=== PATIENT | female | born 1955 | race Caucasian/White ===

== ENCOUNTER 2017-02-18 16:39 | Emergency (ER) | payer OTHER ==
[~2017-02-18] VITALS: Ht 403.9 cm; Wt 105.6 kg
[~2017-02-18 16:39] MED LIST: ALBUTEROL SULF8.5 GM IH; ALBUTEROL17 GM IH; ALEVE220 M2 PO; ALEVE220 MG PO; ANAPROX DS550 M1 PO; ASPIRIN81 M2 PO; ATIVAN1 MG PO; ATIVAN2 MG PO; AZITHROMYCIN250 MG1 PO; Ativan PO; CALCIUM500 M3 NG; CALCIUM500 M4; CEFUROXIME250 MG PO; CEFUROXIME500 MG PO; CENTRUM SILVER1 EAC3 PO; CLARITIN10 M3 PO; COMBIVENT RESPIM4 GM IH; COMBIVENT200 INHALA IH; CULTURELLE CAP1 EACH PO; Claritin,Alavart PO; EXCEDRIN MIGRA1 EAC3 PO; Ecotrin PO; FLOVENT 11120 INHALA IH; FLOVENT 22120 INHALA IH; GLUCOPHAGE XR,500 MG PO; HYCODAN SYRUP480 ML PO; LEVOCETIRIZINE D5 MG PO; LEVOTHYROXINE125 MCG PO; LEVOTHYROXINE75 MCG PO; LOPRESSOR50 MG PO; LORAZEPAM2 MG PO; Levothroid,Synthroid PO; METOPROLOL SUCC50 MG PO; MIRALAX17 GM PO; MOTRIN600 MG PO; Motrin PO; NAPROXEN500 MG PO; NORCO 5/3251 TABLET PO; OMEPRAZOLE40 M1 PO; OXYCODONE5 MG PO; PERCOCET 10/1 TABLET PO; PERCOCET 5/31 TABLET PO; PREDNISONE10 MG PO; PREDNISONE20 MG PO; PREDNISONE50 MG PO; PRILOSEC PO; PRILOSEC40 MG PO; PULMICORT FLE180 MCG IH; Proventil,Ventolin H IH; REGLAN10 M1 PO; REGLAN10 MG PO; ROBITUSSIN DM118 ML PO; SINGULAIR10 MG PO; SYNTHROID100 MCG PO; TEGRETOL100 MG PO; TESSALON PERLE100 M1 PO; TESSALON PERLE100 MG PO; THEO-24200 MG PO; THEO-DUR,THEOC200 MG PO; TYLENOL REGULA325 MG PO; Tylenol Regular Stre PO; VAGIFEM10 MCG VG; VALTREX50 MG/ML PO; VENTOLIN17 GM IH; VERAPAMIL HCL120 M1 PO; VERAPAMIL HCL120 M3 PO; VERAPAMIL HCL120 MG PO; VERAPAMIL SR180 MG PO; VITAMIN C500 MG PO; VITAMIN D1000 INTUN PO
[2017-02-18 20:30] VITALS: BP 120/57
== END 2017-02-18 20:31 | disposition home or self-care (01) ==
LOC: EME 16:39
DX: A74.9 Chlamydial infection, unspecified (principal)
CPT/HCPCS: 99281; 99284; J2920; J7030

== ENCOUNTER 2017-05-15 23:03 | Observation (INO) | payer OTHER ==
[~2017-05-15] VITALS: Ht 175.3 cm; Wt 100.0 kg
[2017-05-15 23:35] LABS: HEMATOCRIT 41.1 % (36.0-46.0); MCH 30.7 PG (29.0-34.0); MCHC 32.8 G/DL (30.0-36.0); MCV 93.4 FL (83-99); MEAN PLAT.VOLUME 10.9 uM^3 (9.5-12.4); PLATELET COUNT 212 K/uL (156-360); RBC DIS.WIDTH-CV 13.3 % (11.8-14.6); RBC DIS.WIDTH-SD 45.7 % (39-53); WHITE BLOOD COUNT 10.2 K/uL (4.1-10.2)
[2017-05-15 23:43] LABS: CHLORIDE 107 mEq/L (99-109); POTASSIUM 3.9 mEq/L (3.7-5.4); SODIUM 137 mEq/L (136-147)
[2017-05-15 23:44] LABS: GLUCOSE 219 mg/dL (70-99)
[2017-05-15 23:46] LABS: ANION GAP 11 MEQ/L (2-14)
[2017-05-15 23:48] LABS: GFR ESTIMATE (CALCULATED) > 59 mL/min/
[2017-05-15 23:49] LABS: UREA NITROGEN (BUN) 15 mg/dL (9-23)
[2017-05-15 23:54] LABS: TROP-I INTERPRETATION NEGATIVE; TROPONIN-I < 0.01 ng/mL (0.0-0.30)
[2017-05-16 01:22] LABS: D-DIMER ELISA 0.55 mg/L FEU (< 0.57); TOTAL BILIRUBIN 0.5 mg/dL (0.0-1.0)
[2017-05-16 01:23] LABS: ALKALINE PHOSPHATASE 133 IU/L (3-129)
[2017-05-16 01:26] LABS: DIRECT BILIRUBIN 0.2 mg/dL (0.0-0.3)
[2017-05-16 01:27] LABS: LIPASE 71 U/L (1.0-51.0)
[2017-05-16 06:16] VITALS: BP 129/57
[2017-05-16 07:20] VITALS: BP 114/58
[2017-05-16 07:24] LABS: TROP-I INTERPRETATION NEGATIVE; TROPONIN-I < 0.01 ng/mL (0.0-0.30)
[2017-05-16] MEDS ORDERED: LOSARTAN POTASS50 MG PO (09:24)
[2017-05-16] MEDS ORDERED: BENTYL10 MG PO (09:24)
[2017-05-16] MEDS ORDERED: ASPIRIN81 M2 PO (10:00)
[2017-05-16 11:41] VITALS: BP 115/60
[2017-05-16 13:27] LABS: TROP-I INTERPRETATION NEGATIVE; TROPONIN-I 0.01 ng/mL (0.0-0.30)
[2017-05-18 18:55] LABS: Varicella IgM <=0.90 (<=0.90)
== END 2017-05-16 15:17 | disposition home or self-care (01) ==
LOC: EME 23:03 → EXP 23:03 → EDOF 05-16 03:59 → 5WEST 05-16 05:45
PROVIDERS: Hospitalist
DX: R07.9 Chest pain, unspecified (principal); I10 Essential (primary) hypertension; E11.65 Type 2 diabetes mellitus with hyperglycemia; R06.02 Shortness of breath; R11.0 Nausea; R51 Headache; Z98.890 Other specified postprocedural states; K21.9 Gastro-esophageal reflux disease without esophagitis; J44.9 Chronic obstructive pulmonary disease, unspecified; Z79.52 Long term (current) use of systemic steroids; Z88.8 Allergy status to other drugs, medicaments and biological substances
CPT/HCPCS: 71020; 80048; 80076; 83690; 84484; 85027; 85379; 86787 90; 93005; 93306; 93971; 99281; 99285; G0378; J1650; J1885; J2405; J3010; J7040

== ENCOUNTER 2017-06-01 15:11 | Observation (INO) | payer OTHER ==
[~2017-06-01] VITALS: Ht 175.3 cm; Wt 105.5 kg
[~2017-06-01 15:11] MED LIST changes: +BENTYL10 MG PO; +LOSARTAN POTASS50 MG PO
[2017-06-01 16:12] LABS: HEMATOCRIT 42.8 % (36.0-46.0); MCH 30.9 PG (29.0-34.0); MCHC 33.2 G/DL (30.0-36.0); MEAN PLAT.VOLUME 11.2 uM^3 (9.5-12.4); PLATELET COUNT 254 K/uL (156-360); RBC DIS.WIDTH-CV 13.2 % (11.8-14.6); RBC DIS.WIDTH-SD 45.1 % (39-53); WHITE BLOOD COUNT 9.4 K/uL (4.1-10.2)
[2017-06-01 16:36] LABS: TROP-I INTERPRETATION NEGATIVE; TROPONIN-I < 0.01 ng/mL (0.0-0.30)
[2017-06-01 16:37] LABS: CHLORIDE 106 mEq/L (99-109); POTASSIUM 4.4 mEq/L (3.7-5.4); SODIUM 137 mEq/L (136-147)
[2017-06-01 16:38] LABS: GLUCOSE 176 mg/dL (70-99)
[2017-06-01 16:40] LABS: ANION GAP 13 MEQ/L (2-14)
[2017-06-01 16:42] LABS: GFR ESTIMATE (CALCULATED) 54 mL/min/
[2017-06-01 16:43] LABS: UREA NITROGEN (BUN) 16 mg/dL (9-23)
[2017-06-01 19:27] LABS: POINT-OF-CARE METER ID UU13113702
[2017-06-01] MEDS ORDERED: CALAN SR,COVER180 MG PO (19:51)
[2017-06-01] MEDS ORDERED: LO-DOSE ASPIRIN81 M2 PO (19:51)
[2017-06-01] MEDS ORDERED: SYNTHROID137 MCG PO (19:52)
[2017-06-01] MEDS ORDERED: JANUVIA100 MG PO (19:53)
[2017-06-01] MEDS ORDERED: ZOFRAN4 MG PO (19:53)
[2017-06-02 01:21] VITALS: BP 123/75
[2017-06-02 04:06] VITALS: BP 101/55
[2017-06-02 06:39] LABS: TROP-I INTERPRETATION NEGATIVE; TROPONIN-I < 0.01 ng/mL (0.0-0.30)
[2017-06-02 07:16] VITALS: BP 98/47
[2017-06-02] MEDS ORDERED: FLEXERIL10 MG PO (11:18)
[2017-06-02 12:03] VITALS: BP 123/66
== END 2017-06-02 12:42 | disposition home or self-care (01) ==
LOC: EME 15:11 → EDOF 06-02 00:19 → 5WEST 06-02 01:13
PROVIDERS: Physician Assistant; Physician Assistant Medical
DX: R07.89 Other chest pain (principal); F41.9 Anxiety disorder, unspecified; E11.9 Type 2 diabetes mellitus without complications; I10 Essential (primary) hypertension; E78.5 Hyperlipidemia, unspecified; E03.9 Hypothyroidism, unspecified; K76.0 Fatty (change of) liver, not elsewhere classified; K21.9 Gastro-esophageal reflux disease without esophagitis; J44.9 Chronic obstructive pulmonary disease, unspecified; Z87.891 Personal history of nicotine dependence; Z88.8 Allergy status to other drugs, medicaments and biological substances; Z79.82 Long term (current) use of aspirin; E66.9 Obesity, unspecified; Z68.34 Body mass index [BMI] 34.0-34.9, adult; R06.02 Shortness of breath; R26.2 Difficulty in walking, not elsewhere classified; R10.9 Unspecified abdominal pain
CPT/HCPCS: 71020; 71250; 78582; 80048; 82948; 84484; 85027; 93005; 94640; 99281; 99285; A9540; A9567; G0378; J2270; J2405

== ENCOUNTER 2017-06-14 10:01 | Day surgery (SDC) | payer OTHER ==
[~2017-06-14] VITALS: Ht 175.3 cm; Wt 103.9 kg
[~2017-06-14 10:01] MED LIST changes: +CALAN SR,COVER180 MG PO; +FLEXERIL10 MG PO; +JANUVIA100 MG PO; +LO-DOSE ASPIRIN81 M2 PO; +SYNTHROID137 MCG PO; +ZOFRAN4 MG PO
[2017-06-14 11:02] LABS: POINT-OF-CARE METER ID UU13113696
== END 2017-06-14 20:02 | disposition home or self-care (01) ==
LOC: CATH 10:01
PROVIDERS: Internal Medicine Cardiovascular Disease
DX: I25.10 Atherosclerotic heart disease of native coronary artery without angina pectoris (principal); I47.1 Supraventricular tachycardia; I10 Essential (primary) hypertension; Z68.36 Body mass index [BMI] 36.0-36.9, adult; E66.9 Obesity, unspecified; Z82.49 Family history of ischemic heart disease and other diseases of the circulatory system; Z83.3 Family history of diabetes mellitus; Z88.0 Allergy status to penicillin; Z88.2 Allergy status to sulfonamides
CPT/HCPCS: 82948; C1769; C1887; J1644; J2250; J3010

== ENCOUNTER 2017-10-09 07:39 | Day surgery (SDC) | payer OTHER ==
[~2017-10-09] VITALS: Ht 175.3 cm; Wt 99.8 kg
[~2017-10-09 07:39] MED LIST changes: -METOPROLOL SUCC50 MG PO; +TOPROL XL50 MG PO
[2017-10-09 08:22] LABS: POINT-OF-CARE METER ID UU14174212
[2017-10-09 12:14] LABS: POINT-OF-CARE METER ID UU13113675
[2017-10-09 15:10] VITALS: BP 118/66
[2017-10-09 16:20] VITALS: BP 133/63
== END 2017-10-09 16:10 | disposition home or self-care (01) ==
LOC: SDC 07:39
PROVIDERS: Podiatrist Foot & Ankle Surgery
PROC: 0HRNXK3 Replacement of Left Foot Skin with Nonautologous Tissue Substitute, Full Thickness, External Approach (ICD-10-PCS; principal; 2017-10-09)
DX: G57.62 Lesion of plantar nerve, left lower limb (principal); G57.82 Other specified mononeuropathies of left lower limb; E11.9 Type 2 diabetes mellitus without complications; J44.9 Chronic obstructive pulmonary disease, unspecified; I10 Essential (primary) hypertension; E03.9 Hypothyroidism, unspecified; K21.9 Gastro-esophageal reflux disease without esophagitis; R42 Dizziness and giddiness; M25.572 Pain in left ankle and joints of left foot; Z88.0 Allergy status to penicillin; Z88.8 Allergy status to other drugs, medicaments and biological substances
CPT/HCPCS: 82948; 88305; 94640; J0131; J0690; J1100; J1170; J1885; J2250; J2405; J3010; S0020

== ENCOUNTER 2017-10-21 22:01 | Observation (INO) | payer OTHER ==
[~2017-10-21] VITALS: Ht 175.3 cm; Wt 103.0 kg
[2017-10-21 22:38] LABS: EOSINOPHIL (%) 1.5 % (0-5); EOSINOPHIL COUNT 0.2 K/uL (0-0.3); HEMATOCRIT 39.5 % (36.0-46.0); IMMATURE GRANULOCYTE (%) 0.4 % (0.0-0.7); IMMATURE GRANULOCYTE COUNT 0.1 K/uL; INSTRUMENT ABS NEUTROPHIL CT 7.8 K/uL; LYMPHOCYTE COUNT 2.5 K/uL (1.0-2.8); MCHC 33.2 G/DL (30.0-36.0); MCV 93.4 FL (83-99); MEAN PLAT.VOLUME 10.8 uM^3 (9.5-12.4); MONOCYTE (%) 5.2 % (3-12); MONOCYTE COUNT 0.6 K/uL (0-0.8); NEUTROPHIL (%) 70.2 % (45-76); NEUTROPHIL COUNT 7.8 K/uL (1.8-6.4); PLATELET COUNT 201 K/uL (156-360); RBC DIS.WIDTH-SD 44.2 % (39-53); RED BLOOD COUNT 4.23 M/uL (3.80-5.20); WHITE BLOOD COUNT 11.2 K/uL (4.1-10.2)
[2017-10-21 22:53] LABS: CHLORIDE 107 mEq/L (99-109); POTASSIUM 3.9 mEq/L (3.7-5.4); SODIUM 137 mEq/L (136-147)
[2017-10-21 22:56] LABS: GLUCOSE 184 mg/dL (70-99)
[2017-10-21 22:57] LABS: ANION GAP 10 MEQ/L (2-14)
[2017-10-21 22:58] LABS: TOTAL BILIRUBIN 0.4 mg/dL (0.0-1.0)
[2017-10-21 22:59] LABS: ALKALINE PHOSPHATASE 101 IU/L (3-129); GFR ESTIMATE (CALCULATED) > 59 mL/min/
[2017-10-21 23:00] LABS: UREA NITROGEN (BUN) 19 mg/dL (9-23)
[2017-10-21 23:03] LABS: TROP-I INTERPRETATION NEGATIVE; TROPONIN-I < 0.01 ng/mL (0.0-0.30)
[2017-10-22] MEDS ORDERED: LEVOTHYROXINE137 MCG PO (00:25)
[2017-10-22 00:26] LABS: ADD MIUA? YES; BILIRUBIN NEGATIVE; BLOOD SMALL; COLOR YELLOW ((YELLOW)); GLUCOSE (STRIP) NEGATIVE; KETONES NEGATIVE; LEUKOCYTES LARGE; NITRITE NEGATIVE; PROTEIN (STRIP) NEGATIVE; SPECIFIC GRAVITY 1.014 (1.000-1.030); UROBILINOGEN 0.2 MG/DL (0.2-1.0)
[2017-10-22] MEDS ORDERED: DICYCLOMINE HCL10 MG PO (00:26)
[2017-10-22] MEDS ORDERED: ENDOCET 5-3251 EACH PO (00:26)
[2017-10-22] MEDS ORDERED: ONDANSETRON HCL4 MG PO (00:28)
[2017-10-22] MEDS ORDERED: PANTOPRAZOLE SO40 MG PO (00:28)
[2017-10-22] MEDS ORDERED: FLUOXETINE HCL20 M1 PO (00:28)
[2017-10-22] MEDS ORDERED: VERAPAMIL HCL180 MG PO (00:29)
[2017-10-22] MEDS ORDERED: OXYCODONE HCL5 MG PO (00:30)
[2017-10-22] MEDS ORDERED: NAPROXEN500 MG PO (00:31)
[2017-10-22] MEDS ORDERED: LORAZEPAM1 MG PO (00:32)
[2017-10-22] MEDS ORDERED: TRAMADOL HCL50 MG PO (00:34)
[2017-10-22 00:40] LABS: BACTERIA RARE /HPF; EPITHELIAL CELLS 1+ /HPF; MUCUS TRACE /LPF; UCUL ADDED? YES; WHITE BLOOD CELLS 20-30 /HPF (0-5)
[2017-10-22 02:34] VITALS: BP 106/60
[2017-10-22 06:32] LABS: TROP-I INTERPRETATION NEGATIVE; TROPONIN-I < 0.01 ng/mL (0.0-0.30)
[2017-10-22 08:40] VITALS: BP 131/65
[2017-10-22 11:53] VITALS: BP 99/62
[2017-10-22 12:17] LABS: TROP-I INTERPRETATION NEGATIVE; TROPONIN-I < 0.01 ng/mL (0.0-0.30)
[2017-10-22] MEDS ORDERED: NITROFURANTOIN50 MG PO (13:05)
== END 2017-10-22 18:39 | disposition home or self-care (01) ==
LOC: EME → EDBD 22:01 → EME 22:01 → EDOF 10-22 00:18 → 5WEST 10-22 00:18 → EDOF 10-22 00:18 → ENRESERV 10-22 00:19 → 5WEST 10-22 01:50 → ENPENDDIS 10-22 13:57 → 5WEST 10-22 18:39
PROVIDERS: Emergency Medicine; Hospitalist
DX: R07.89 Other chest pain (principal); D68.9 Coagulation defect, unspecified; N39.0 Urinary tract infection, site not specified; I10 Essential (primary) hypertension; M79.89 Other specified soft tissue disorders; M79.605 Pain in left leg; Z98.890 Other specified postprocedural states; K21.9 Gastro-esophageal reflux disease without esophagitis; J44.9 Chronic obstructive pulmonary disease, unspecified; E11.9 Type 2 diabetes mellitus without complications; E03.9 Hypothyroidism, unspecified; Z87.442 Personal history of urinary calculi; Z90.49 Acquired absence of other specified parts of digestive tract; Z90.710 Acquired absence of both cervix and uterus; Z87.891 Personal history of nicotine dependence; Z88.0 Allergy status to penicillin; Z88.1 Allergy status to other antibiotic agents; Z88.2 Allergy status to sulfonamides; Z88.5 Allergy status to narcotic agent; Z88.7 Allergy status to serum and vaccine
CPT/HCPCS: 71020; 78582; 80053; 81003; 84484; 85025; 85379; 87086; 93005; 93971; 99281; 99285; A9539; A9540; G0378; J1650; J2405; J2765; J3010; J7040

== ENCOUNTER 2018-01-29 15:24 | Emergency (ER) | payer OTHER ==
[~2018-01-29] VITALS: Ht 175.3 cm; Wt 98.8 kg
[~2018-01-29 15:24] MED LIST changes: +DICYCLOMINE HCL10 MG PO; +ENDOCET 5-3251 EACH PO; +FLUOXETINE HCL20 M1 PO; +LEVOTHYROXINE137 MCG PO; +LORAZEPAM1 MG PO; +NITROFURANTOIN50 MG PO; +ONDANSETRON HCL4 MG PO; +OXYCODONE HCL5 MG PO; +PANTOPRAZOLE SO40 MG PO; +TRAMADOL HCL50 MG PO; +VERAPAMIL HCL180 MG PO
[2018-01-29] MEDS ORDERED: MOTRIN600 MG PO (16:35)
[2018-01-29 17:35] VITALS: BP 100/67
== END 2018-01-29 17:44 | disposition home or self-care (01) ==
LOC: EME 15:24
DX: S60.222A Contusion of left hand, initial encounter (principal); W23.0XXA Caught, crushed, jammed, or pinched between moving objects, initial encounter; I10 Essential (primary) hypertension; E03.9 Hypothyroidism, unspecified; E11.9 Type 2 diabetes mellitus without complications; J44.9 Chronic obstructive pulmonary disease, unspecified; F17.200 Nicotine dependence, unspecified, uncomplicated; Z79.82 Long term (current) use of aspirin; Z88.5 Allergy status to narcotic agent; Z88.2 Allergy status to sulfonamides; Z88.1 Allergy status to other antibiotic agents; Z88.0 Allergy status to penicillin; Z88.7 Allergy status to serum and vaccine; Z91.041 Radiographic dye allergy status
CPT/HCPCS: 73130; 99281; 99283

== ENCOUNTER 2018-04-25 13:34 | Emergency (ER) | payer OTHER ==
[~2018-04-25] VITALS: Ht 175.3 cm; Wt 100.0 kg
[2018-04-25 14:46] LABS: HEMATOCRIT 39.8 % (36.0-46.0); HEMOGLOBIN 13.6 G/DL (11.9-15.5); MCH 31.5 PG (29.0-34.0); MCHC 34.2 G/DL (30.0-36.0); MCV 92.1 FL (83-99); PLATELET COUNT 224 K/uL (156-360); RBC DIS.WIDTH-CV 12.5 % (11.8-14.6); RBC DIS.WIDTH-SD 42.2 % (39-53); RED BLOOD COUNT 4.32 M/uL (3.80-5.20); WHITE BLOOD COUNT 9.2 K/uL (4.1-10.2)
[2018-04-25 14:55] LABS: ALBUMIN 4.3 g/dL (3.2-4.8); CHLORIDE 103 mEq/L (99-109); POTASSIUM 4.2 mEq/L (3.7-5.4); SODIUM 137 mEq/L (136-147)
[2018-04-25 14:57] LABS: GLUCOSE 263 mg/dL (70-99)
[2018-04-25 14:58] LABS: TOTAL PROTEIN 6.9 g/dL (6.4-8.3)
[2018-04-25 14:59] LABS: TOTAL BILIRUBIN 0.5 mg/dL (0.0-1.0)
[2018-04-25 15:01] LABS: ALKALINE PHOSPHATASE 134 IU/L (3-129); CREATININE 0.9 mg/dL (0.6-1.3); GFR ESTIMATE (CALCULATED) > 59 mL/min/
[2018-04-25 15:02] LABS: UREA NITROGEN (BUN) 15 mg/dL (9-23)
[2018-04-25 15:03] LABS: AST (GOT) 34 IU/L (2-34)
[2018-04-25 15:04] LABS: ALT (GPT) 38 IU/L (3-49)
[2018-04-25 15:22] LABS: APPEARANCE SL.HAZY ((CLEAR)); BILIRUBIN NEGATIVE; BLOOD NEGATIVE; COLOR YELLOW ((YELLOW)); GLUCOSE (STRIP) 150; KETONES NEGATIVE; LEUKOCYTES NEGATIVE; NITRITE NEGATIVE; PROTEIN (STRIP) NEGATIVE; SPECIFIC GRAVITY 1.021 (1.000-1.030); UROBILINOGEN 0.2 MG/DL (0.2-1.0)
[2018-04-25 15:24] LABS: BACTERIA RARE /HPF; EPITHELIAL CELLS 1+ /HPF; HYALINE CASTS 0-5 /LPF; MUCUS TRACE /LPF; RED BLOOD CELLS 0-5 /HPF (0-5); UCUL ADDED? NO; WHITE BLOOD CELLS 0-5 /HPF (0-5)
[2018-04-25] MEDS ORDERED: MOTRIN800 MG PO (16:36)
[2018-04-25] MEDS ORDERED: ZOFRAN4 MG PO (16:36)
[2018-04-25 16:58] VITALS: BP 156/89
[2018-04-25 17:04] LABS: AMPHETAMINE NEGATIVE (500 ng/mL); BARBITURATES NEGATIVE (200 ng/mL); BENZODIAZEPINES NEGATIVE (150 ng/mL); BUPRENORPHINE NEGATIVE (10 ng/mL); COCAINE NEGATIVE (150 ng/mL); METHADONE NEGATIVE (200 ng/mL); METHAMPHETAMINE NEGATIVE (500 ng/mL); OPIATES (MORPHINE) NEGATIVE (100 ng/mL); OXYCODONE NEGATIVE (100 ng/mL); PHENCYCLIDINE NEGATIVE (25 ng/mL); PROPOXYPHENE NEGATIVE (300 ng/mL); THC CANNABINOIDS NEGATIVE (50 ng/mL); TRICYCLIC ANTIDEPRESSANTS NEGATIVE (300 ng/mL)
== END 2018-04-25 17:00 | disposition home or self-care (01) ==
LOC: EME 13:34
PROVIDERS: Nurse Practitioner Family
DX: S09.90XA Unspecified injury of head, initial encounter (principal); R11.0 Nausea; Y04.2XXA Assault by strike against or bumped into by another person, initial encounter; E11.9 Type 2 diabetes mellitus without complications; Z79.84 Long term (current) use of oral hypoglycemic drugs; F32.9 Major depressive disorder, single episode, unspecified; I10 Essential (primary) hypertension; J44.9 Chronic obstructive pulmonary disease, unspecified; K21.9 Gastro-esophageal reflux disease without esophagitis; M79.7 Fibromyalgia; Z88.5 Allergy status to narcotic agent; Z88.2 Allergy status to sulfonamides; Z88.1 Allergy status to other antibiotic agents; Z88.0 Allergy status to penicillin; F17.200 Nicotine dependence, unspecified, uncomplicated
CPT/HCPCS: 70450; 80053; 81003; 85027; 99281; 99284

== ENCOUNTER 2018-05-03 00:08 | Emergency (ER) | payer OTHER ==
[~2018-05-03] VITALS: Ht 175.3 cm; Wt 110.0 kg
[~2018-05-03 00:08] MED LIST changes: +MOTRIN800 MG PO
[2018-05-03 03:45] VITALS: BP 130/87
== END 2018-05-03 03:51 | disposition home or self-care (01) ==
LOC: EME 00:08
DX: S16.1XXA Strain of muscle, fascia and tendon at neck level, initial encounter (principal); M79.641 Pain in right hand; Y04.8XXA Assault by other bodily force, initial encounter; Y07.03 Male partner, perpetrator of maltreatment and neglect; I10 Essential (primary) hypertension; J44.9 Chronic obstructive pulmonary disease, unspecified; E11.9 Type 2 diabetes mellitus without complications; M79.7 Fibromyalgia; K21.9 Gastro-esophageal reflux disease without esophagitis; F41.9 Anxiety disorder, unspecified; F32.9 Major depressive disorder, single episode, unspecified; F17.200 Nicotine dependence, unspecified, uncomplicated; Z87.442 Personal history of urinary calculi; Z90.49 Acquired absence of other specified parts of digestive tract; Z90.710 Acquired absence of both cervix and uterus; Z79.82 Long term (current) use of aspirin; Z91.041 Radiographic dye allergy status; Z88.5 Allergy status to narcotic agent; Z88.2 Allergy status to sulfonamides; Z88.1 Allergy status to other antibiotic agents; Z88.0 Allergy status to penicillin; Z88.7 Allergy status to serum and vaccine; Z88.8 Allergy status to other drugs, medicaments and biological substances
CPT/HCPCS: 72125; 73130; 80048; 93880; 99281; 99284